=== PATIENT | female | born 1955 | race Caucasian/White ===

== ENCOUNTER 2023-12-07 18:54 | Emergency (ER) | payer MEDICARE, SELFPAY ==
[2023-12-07 19:10] VITALS: BP 148/89; PULSE 102; RESP 14; TEMP 38.2; O2SAT 100
--- NOTE | 2023-12-07 19:13 | ED.URI ---
HPI - URI/Sore Throat General Chief Complaint: Upper Respiratory Infection Stated Complaint: Sinus Time Seen by Provider: 12/07/23 19:13 Source: patient and RN notes reviewed Mode of arrival: ambulatory Limitations: no limitations History of Present Illness HPI Narrative: 68 year old female presents with concern for 3 day history of sinus congestion, drainage, productive cough. Reports headaches and ear pressure. Reports she has been taking Tylenol ibuprofen, using cough drops MD elicited complaint: cough and sore throat Related Data Home Medications Medication Instructions Recorded Confirmed Prolia Q5SEC 12/07/23 fluticasone propionate 50 intranasal 12/07/23 mcg/actuation nasal spray,suspension hydroxyzine HCl 25 mg tablet 25 mg PO QHS 12/07/23 12/07/23 simvastatin 20 mg tablet (Zocor) mg 12/07/23 Allergies Allergy/AdvReac Type Severity Reaction Status Date / Time erythromycin base AdvReac Difficulty Verified 12/07/23 19:27 Breathing Review of Systems Review of Systems: CONSTITUTIONAL: Denies malaise, chills, sweats, or fever. EYES: Denies visual changes, redness, or discharge. ENT: Reports rhinorrhea, congestion, ear pressure. Denies sinus pain, otalgia and sore throat. CARDIOVASCULAR: Denies chest pain, palpitations, or edema. RESPIRATORY: Reports cough. Denies dyspnea. GASTROINTESTINAL: Denies abdominal pain, nausea, vomiting, diarrhea SKIN: Denies rash or itching. MUSCULOSKELETAL: Denies myalgia. NEUROLOGIC: Reports headache. All systems reviewed & are unremarkable except as noted in HPI and below PMFSH Comments At time of signature, agree with nursing past medical, surgical, social and family history. There is no relevant family history pertinent to the presenting complaint Exam Narrative: GENERAL: Well-appearing, well-nourished, and in no acute distress. HEAD: Normocephalic EYES: PERRLA, conjunctivae clear ENT: Nares clear, turbinates edematous and erythematous, clear discharge. Mucous membranes moist. TM pearly ghotra with dull light reflex bilaterally; no tragal tenderness. Oropharynx not erythematous without lesions. Tonsils not enlarged and without exudate, no drooling, no hoarseness, no trismus, uvula midline. NECK: Supple. No lymphadenopathy CHEST: Clear to auscultation, breath sounds equal. No wheezing, rhonchi, rales, or stridor. No respiratory distress, speaks in full sentences. HEART: Regular rate and rhythm. No murmur heard. SKIN: Warm, dry, no rash. NEURO: Alert and oriented x3. PSYCH: Normal mood and affect Course Course Emergency Course: Patient is aware of diagnosis, understands and agrees to treatment plan. Anticipatory guidance given. Patient agrees to follow-up as directed and is aware of reasons to seek care at the emergency department. Portions of this record may have been created with voice recognition software Level of Care: Express Care Visit Vital Signs Vital signs: Vital Signs Temperature 100.8 F H 12/07/23 19:10 Pulse Rate 102 H 12/07/23 19:10 Respiratory Rate 14 12/07/23 19:10 Blood Pressure 148/89 H 12/07/23 19:10 Pulse Oximetry 100 12/07/23 19:10 Oxygen Delivery Room Air 12/07/23 19:10 Temperature 100.8 F H 12/07/23 19:10 Pulse Rate 102 H 12/07/23 19:10 Respiratory Rate 14 12/07/23 19:10 Blood Pressure 148/89 H 12/07/23 19:10 Pulse Oximetry 100 12/07/23 19:10 Oxygen Delivery Room Air 12/07/23 19:10 Reviewed. MDM - URI/Sore Throat MDM Narrative Medical decision making narrative: Differential diagnosis considered: Evans virus, strep pharyngitis, allergic rhinitis, upper respiratory tract infection, sinusitis, rhinosinusitis, nasopharyngitis. viral pharyngitis, otitis media, otitis externa, pneumonia, bronchitis, viral cough syndrome, viral syndrome, and influenza. Exam findings show no acute concerns or changes; patient is non-toxic appearing and is in no distress. Patient is appropriate for outpati
== END 2023-12-07 19:30 | disposition home or self-care (01) ==
PROVIDERS: Emergency Provider Nurse Practitioner
DX: U07.1 COVID-19 (principal)
CPT/HCPCS: 87426; 87804; 99213; C9803; G0463

== ENCOUNTER 2023-12-12 14:28 | Emergency (ER) | payer MEDICARE, SELFPAY ==
--- NOTE | 2023-12-12 14:31 | ED.URI ---
HPI - URI/Sore Throat General Chief Complaint: Upper Respiratory Infection Stated Complaint: Sinus Time Seen by Provider: 12/12/23 14:30 Source: patient Mode of arrival: ambulatory Limitations: no limitations History of Present Illness HPI Narrative: Kimberlee is a 68-year-old female patient presenting to the clinic today with complaints of cough and nasal congestion times 8 days. She was seen on December 07 and tested positive for COVID at that time. States she is still having a lot of congestion and phlegm stuck in her throat. MD elicited complaint: nasal congestion Related Data Home Medications Medication Instructions Recorded Confirmed hydroxyzine HCl 25 mg tablet 25 mg PO QHS 12/07/23 12/12/23 lisinopril 10 1 tablet PO DIRECTED 12/07/23 12/12/23 mg-hydrochlorothiazide 12.5 mg tablet alprazolam 0.25 mg tablet 0.25 mg PO DIRECTED 12/12/23 12/12/23 amoxicillin 500 mg capsule 500 mg PO BID 12/12/23 12/12/23 Allergies Allergy/AdvReac Type Severity Reaction Status Date / Time erythromycin base AdvReac Difficulty Verified 12/12/23 14:31 Breathing guaifenesin [From Robitussin] AdvReac Difficulty Verified 12/12/23 14:31 Breathing Review of Systems Review of Systems: Pertinent positives per HPI. Patient denies any fever, chills, rash, headache, visual changes, dizziness, shortness of breath, chest pain, palpitations, nausea, vomiting, diarrhea, constipation, abdominal pain, or any urinary issues. PMFSH Comments At the time of my signature, I reviewed and agree with the nursing past medical, surgical, social, and family history. There is no relevant family history pertinent to the patient complaint. Exam Narrative: General: Well-developed, well nourished, in no apparent distress Head: Normocephalic, atraumatic Eyes: Pupils equally round and reactive to light bilaterally, EOM intact, sclera and conjunctive clear, no discharge, lids normal Ears: TMs intact and clear, ear canals clear, no drainage, grossly hearing normal. Nose: Nares patent, clear nasal discharge, no inflammation, no sinus tenderness. Mouth: Oral pharynx without lesions or masses, good dentition, MMM. Neck: Supple, trachea midline, no enlargement of anterior or posterior cervical nodes, no thyroid masses or goiter palpable. Cardio: Regular rate and rhythm, s1 and s2 normal, no murmur appreciated. Resp: Clear to auscultation bilaterally, no rhonchi, rales, wheezing or rubs Course Course Emergency Course: Portions of this record may have been created with voice recognition software. Level of Care: Express Care Visit Vital Signs Vital signs: Vital Signs Temperature 36.8 C 12/12/23 14:39 Pulse Rate 83 12/12/23 14:39 Respiratory Rate 16 12/12/23 14:39 Blood Pressure 137/83 12/12/23 14:39 Pulse Oximetry 100 12/12/23 14:39 Oxygen Delivery Room Air 12/12/23 14:39 Temperature 36.8 C 12/12/23 14:39 Pulse Rate 83 12/12/23 14:39 Respiratory Rate 16 12/12/23 14:39 Blood Pressure 137/83 12/12/23 14:39 Pulse Oximetry 100 12/12/23 14:39 Oxygen Delivery Room Air 12/12/23 14:39 Vital signs reviewed MDM - URI/Sore Throat MDM Narrative Medical decision making narrative: At the time of visit patient is resting comfortably on the exam table. Patient appears to be nontoxic. I suspect patient has COVID/URI. Will send in prescription for some prednisone. Supportive measures were discussed with the patient and they voiced understanding discharge instructions and agrees to treatment plan. Return precautions reviewed Differential Diagnosis Differential diagnosis: Likely upper respiratory infection, otitis media, sinusitis, viral infection, bronchitis, influenza, pharyngitis and other (COVID) Discharge Plan Discharge Clinical Impression: COVID Upper respiratory infection Qualifiers: URI type: unspecified URI Qualified Code(s): J06.9 - Acute upper respiratory infection, unspe
[2023-12-12 14:39] VITALS: BP 137/83; PULSE 83; RESP 16; TEMP 36.8; O2SAT 100
== END 2023-12-12 14:55 | disposition home or self-care (01) ==
PROVIDERS: Emergency Provider Nurse Practitioner Family
DX: U07.1 COVID-19 (principal); J06.9 Acute upper respiratory infection, unspecified; I10 Essential (primary) hypertension; M81.0 Age-related osteoporosis without current pathological fracture
CPT/HCPCS: 99213; G0463